=== PATIENT | female | born 1990 | race Caucasian/White ===

== ENCOUNTER → 2017-11-17 | Outpatient (CLI) | payer OTHER ==
[2017-11-17 17:48] LABS: BASO % 0.6 %; BASO ABS # 0.03 K/uL (0-0.2); EOS % 6.1 %; EOS ABS # 0.31 K/uL (0-0.5); HEMATOCRIT 38.9 % (37-47); HEMOGLOBIN 12.6 g/dL (12.0-16.0); IG# 0.01 K/uL (0.00-0.02); LYMPH % 35.8 %; LYMPH ABS # 1.82 K/uL (1.2-3.4); MEAN CELL VOLUME 85.1 fL (80-100); MEAN CORPUSCULAR HEMOGLOBIN 27.6 pg (25-34); MEAN CORPUSCULAR HGB CONC 32.4 g/dl (32-36); MEAN PLATELET VOLUME 9.7 fL (7.4-10.4); MONO % 7.1 %; MONO ABS # 0.36 K/uL (0.11-0.59); NEUT % 50.2 %; NEUT ABS # 2.56 K/uL (1.4-6.5); PLATELET COUNT 278 K/uL (130-400); RED CELL DISTRIBUTION WIDTH CV 19.2 % (11.5-14.5); RED CELL DISTRIBUTION WIDTH SD 59.3 fL (36.4-46.3); WHITE BLOOD COUNT 5.09 K/uL (4.8-10.8)
== END | disposition home or self-care (01) ==
LOC: C.LABMFLN 13:03
PROVIDERS: ATTEND Family Medicine
DX: Z90.49 Acquired absence of other specified parts of digestive tract (principal)

== ENCOUNTER 2024-10-01 16:25 | Observation (INO) ==
[2024-10-01 17:34] LABS: Hematocrit (blood only) 46.2 % (37.0-47.0); Hemoglobin 15.5 g/dl (12.0-16.0); Mean Corpuscular Hemoglobin 31.3 pg (25.0-34.0); Mean Corpuscular Hgb Conc 33.5 g/dL (32.0-36.0); Mean Corpuscular Volume 93.1 fL (80.0-100.0); Mean Platelet Volume 9.4 fL (9.4-12.4); Platelet Count 286 K/uL (130-400); RDW Coefficient of Variation 13.9 % (11.5-14.5); RDW Standard Deviation 47.3 fL (36.4-46.3); Red Blood Count 4.96 M/uL (4.20-5.40); White Blood Count 8.54 K/ul (4.8-10.8)
[2024-10-01] MEDS: ONDANSETRON INJ 2 MG/ML 2 ML VIAL IV STA (17:37)
[2024-10-01] MEDS: SODIUM CHLORIDE 0.9% 1,000 ML IV ONE ×2 (17:37→19:46)
[2024-10-01 17:54] LABS: Alanine Aminotransferase 21 U/L (7-52); Albumin Globulin Ratio 1.2 (0.9-2); Albumin Level 4.7 gm/dl (3.4-5.0); Alkaline Phosphatase 53 U/L (34-104); Anion Gap 10 (3-11); Aspartate Aminotransferase 23 U/L (13-39); BUN Creatinine Ratio 27.4 (10-20); Bilirubin,Total 0.5 mg/dl (0.2-1.0); Blood Urea Nitrogen 17 mg/dl (6-23); Calcium 9.1 mg/dl (8.6-10.3); Carbon Dioxide 19 mmol/L (21-32); Chloride 107 mmol/L (98-107); Globulin 3.8 gm/dl (2.5-4.0); Glucose 146 mg/dl (70-99(Fasting)); Lipase 12 U/L (11-82); Potassium 3.5 mmol/L (3.5-5.1); Sodium 136 mmol/L (136-145); Total Protein 8.5 gm/dl (6.0-8.3)
--- NOTE | 2024-10-01 17:55 | Emergency Department Note ---
Impression & Plan Nausea, vomiting, and diarrhea, Sinus tachycardia, Abdominal pain ED Provider Note HISTORY OF PRESENT ILLNESS: Patient is a 34-year-old female presenting with abdominal pain, vomiting and diarrhea. Patient reports that symptoms started at 2:30 AM and awoke her from sleep. She complains of lower abdominal pain that radiates diffusely across her abdomen. Reports multiple abdominal surgeries, including small bowel resection for " gut." She states that she has had nausea and multiple episodes of vomiting and diarrhea. Reports that diarrhea is watery in nature. Denies any notable fevers at home. Reports that her heart rate is very high and she has had to take off her Apple Watch secondary to it alerting her of her tachycardia. 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 She denies any dysuria or hematuria. Denies any recent antibiotic use. Denies any chest pain or shortness of breath. ROS: as above PHYSICAL EXAM: Constitutional: Patient appears in no acute distress. HENT: Head: Normocephalic and atraumatic. Eyes: EOMI, PERRL Mouth/Throat: Mucous membranes moist. Neck: Trachea midline. Neck supple. Cardiovascular: Tachycardic with regular rhythm. No murmurs, rubs or gallops. Intact distal pulses. Pulmonary/Chest: No respiratory distress. Breath sounds clear and equal bilaterally. No wheezes or rales. Abdominal: Abdomen soft, no rebound or guarding. Diffuse TTP Musculoskeletal: No edema, tenderness or deformity noted. Skin: Warm and dry. No rash, erythema, pallor or cyanosis Psychiatric: Appropriate mood and affect for situation. Neurological: Alert and keenly responsive. CN II-XII grossly intact, moving all extremities equally and fully. MDM: - Vitals signs showed tachycardia - History obtained via patient. History as above. - Chronic conditions affecting care: palpitations - Differential diagnoses include, but are not limited to: bowel obstruction; cholecystitis; electrolyte abnormality; viral syndrome; dehydration; diverticulitis; colitis - Order placed for continuous cardiac monitoring. At this time, monitor showed rate of 111 bpm with normal sinus rhythm, per my interpretation. - External medical records reviewed. Showed C. difficile - Laboratory workup interpreted by myself showed normal WBC; stable electrolytes; hyperglycemia (glucose 146) with normal anion gap; normal lipase; negative hCG - Viral respiratory panel negative - CT abdomen/pelvis with IV contrast showed a hiatal hernia and possible colonic ileus, but otherwise no acute abnormality. Gallbladder is read as unremarkable. No appendix is visualized that is appears to have been removed per radiology. - Patient given 1L NS, 4 mg IV zofran and 4 mg IV morphine in ER for symptomatic management. On reassessment, she still complaining of nausea and pain. She is given 1 L normal saline, 50 mg IV Benadryl and 10 mg IV Compazine. - UA showed bacteria. Given 2g IV rocephin. Patient is not having any urinary symptoms, so do not feel that she needs to be discharged on any antibiotic until cultures result. - Patient noted to be persistently tachycardic while in the emergency department. I thought it was initially secondary to her IV Benadryl dosing for her vomiting. She was given 1 mg IV Ativan with little improvement in her heart rate. She has been persistently 122 to 124 bpm. I did obtain an EKG at 2223. EKG image interpreted by myself showed normal sinus rhythm. Rate tachycardic 123 bpm. QT 448. No acute ischemic changes. - Given her persistent tachycardia, will admit to hospital service for observation and further management. - Discussion was had with gastroenterology manager about patient's case and need for admission - Hospitalist consulted for admission - [facility] ASSESSMENT AND PLAN: Diagnosis: Nausea, vomiting and diarrhea; abdominal pain; sinus tachycardia Plan: Admit Past Med/Surg History Problem List (Updated 10/01/24 @ 23:09 by Melvina Riley MD) Abdominal pain (Acute) Sinus tachycardia (Acute) Nausea, vomiting, and diarrhea (Acute) Short of breath on exertion Left ankle pain Chest pain Cough COVID-19 Sinusitis Weak Viral syndrome Medical History Anemia C. difficile diarrhea Chest pain Diarrhea Hearing loss Insomnia Memory loss Palpitations Palpitations Sinus tachycardia Tinnitus Surgical History S/P right hemicolectomy Family History Other No pertinent family history Social History Smoking Status: Never smoker Second Hand Exposure: No; Hx Alcohol Use: No Hx Substance Use: No marital status: Single Current Living Situation: Family and Significant Other Current Living Situation Comment: son- 9 daughter-2 current occupational status: employed current occupation: [employer] Fe[employer] Safe at Home: Yes Childhood Exposure to Second-Hand Smoke: Yes caffeine: Yes Dental Care, Regularly: No Physical Activity Frequency: Does not Exercise Seatbelt Use: never Allergies Allergies Allergy/AdvReac Type Severity Reaction Status Date / Time erythromycin base AdvReac Verified 09/23/23 11:58 morphine AdvReac Verified 09/23/23 11:58 Sulfa (Sulfonamide AdvReac Verified 09/23/23 11:58 Antibiotics) Home Meds Previous Rx's Medication Instructions Recorded albuterol sulfate 90 mcg/actuation 2 puff inhalation QID #8 grams 09/17/23 aerosol inhaler (ProAir HFA) diphenoxylate-atropine 2.5 1 tab PO TID PRN diarrhea #14 tabs 09/23/23 mg-0.025 mg tablet (Lomotil) ibuprofen 600 mg tablet 600 mg PO TID PRN pain #30 tabs 09/23/23 ondansetron HCl 4 mg tablet 4 mg PO Q6H PRN nausea and 09/23/23 vomiting #14 tabs hydroxyzine HCl 25 mg tablet 25 mg PO HS PRN itching #30 tabs 04/29/24 Results & Data (ED) Vital Signs Vital Signs - 24 hr 10/01/24 16:38 10/01/24 18:15 10/01/24 18:33 Temperature 36 C L Temperature Source Temporal Artery Scan Pulse Rate 127 H 122 H Pulse Rate [Apical] Pulse Rate from SpO2 Sensor 114 H Respiratory Rate 20 Respiratory Depth Normal Blood Pressure 121/84 Blood Pressure [Right Arm] Blood Pressure Mean 96 Blood Pressure Mean [Right Arm] Pulse Oximetry 99 99 Oxygen Delivery Method Room Air Sepsis Recent Fever Within 48 Hours No Sepsis New/Unexplained Change in Mental Status No Sepsis Action Taken by Nursing No Action Required 10/01/24 18:53 10/01/24 19:30 10/01/24 20:03 Temperature Temperature Source Pulse Rate 113 H 126 H Pulse Rate [Apical] 110 H Pulse Rate from SpO2 Sensor Respiratory Rate 20 24 29 H Respiratory Depth Blood Pressure 125/87 137/103 H Blood Pressure [Right Arm] 111/72 Blood Pressure Mean 99 114 Blood Pressure Mean [Right Arm] 85 Pulse Oximetry 98 96 97 Oxygen Delivery Method Room Air Sepsis Recent Fever Within 48 Hours Sepsis New/Unexplained Change in Mental Status Sepsis Action Taken by Nursing 10/01/24 20:45 10/01/24 21:03 10/01/24 21:27 Temperature Temperature Source Pulse Rate 127 H 127 H 131 H Pulse Rate [Apical] Pulse Rate from SpO2 Sensor Respiratory Rate 20 20 22 Respiratory Depth Blood Pressure 131/91 132/89 117/76 Blood Pressure [Right Arm] Blood Pressure Mean 104 103 89 Blood Pressure Mean [Right Arm] Pulse Oximetry 98 97 95 Oxygen Delivery Method Sepsis Recent Fever Within 48 Hours Sepsis New/Unexplained Change in Mental Status Sepsis Action Taken by Nursing 10/01/24 22:15 Temperature Temperature Source Pulse Rate 124 H Pulse Rate [Apical] Pulse Rate from SpO2 Sensor Respiratory Rate Respiratory Depth Blood Pressure Blood Pressure [Right Arm] Blood Pressure Mean Blood Pressure Mean [Right Arm] Pulse Oximetry Oxygen Delivery Method Sepsis Recent Fever Within 48 Hours Sepsis New/Unexplained Change in Mental Status Sepsis Action Taken by Nursing Laboratory Data 10/01/24 16:32 10/01/24 16:32 Lab Results 10/01/24 10/01/24 10/01/24 Range/Units 16:32 18:12 19:22 WBC 8.54 (4.8-10.8) K/ul RBC 4.96 (4.20-5.40) M/uL Hgb 15.5 (12.0-16.0) g/dl Hct 46.2 (37.0-47.0) % MCV 93.1 (80.0-100.0) fL MCH 31.3 (25.0-34.0) pg MCHC 33.5 (32.0-36.0) g/dL RDW Std Deviation 47.3 H (36.4-46.3) fL RDW Coeff of Breana 13.9 (11.5-14.5) % Plt Count 286 (130-400) K/uL MPV 9.4 (9.4-12.4) fL Immature Gran % (Auto) 0.4 % Neut % (Auto) 94.2 % Lymph % (Auto) 3.0 % [place] % (Auto) 2.3 % Eos % (Auto) 0.0 % Baso % (Auto) 0.1 % Neut # (Auto) 8.04 H (1.40-6.50) K/uL Lymph # (Auto) 0.26 L (1.20-3.40) K/uL [place] # (Auto) 0.20 (0.11-0.59) K/uL Eos # (Auto) 0.00 (0.00-0.50) K/uL Baso # (Auto) 0.01 (0.00-0.20) K/uL Immature Gran # (Auto) 0.03 (0.01-0.20) K/uL Sodium 136 (136-145) mmol/L Potassium 3.5 (3.5-5.1) mmol/L Chloride 107 (98-107) mmol/L Carbon Dioxide 19 L (21-32) mmol/L Anion Gap 10 (3-11) BUN 17 (6-23) mg/dl Creatinine 0.62 (0.6-1.2) mg/dl Est Cr Clr Drug Dosing Not Reportable eGFR 119.77 BUN/Creatinine Ratio 27.4 H (10-20) Glucose 146 H (70-99(Fasting)) mg/dl Calcium 9.1 (8.6-10.3) mg/dl Total Bilirubin 0.5 (0.2-1.0) mg/dl AST 23 (13-39) U/L ALT 21 (7-52) U/L Alkaline Phosphatase 53 (34-104) U/L Total Protein 8.5 H (6.0-8.3) gm/dl Albumin 4.7 (3.4-5.0) gm/dl Globulin 3.8 (2.5-4.0) gm/dl Albumin/Globulin Ratio 1.2 (0.9-2) Lipase 12 (11-82) U/L HCG, Qual Negative (Negative) Urine Color Yellow Urine Appearance Clear (Clear) Urine pH 5.5 (4.5-7.5) Ur Specific [place] > 1.045 H (1.000-1.030) Urine Protein 1+ H (Negative) Urine Glucose (UA) Trace H (Negative) Urine Ketones Negative (Negative) Urine Blood Negative (Negative) Urine Nitrite Negative (Negative) Urine Bilirubin Negative (Negative) Urine Urobilinogen Negative (Negative) Ur Leukocyte Esterase Negative (Negative) Urine WBC (Auto) 6-10 H (0-5) /hpf Urine RBC (Auto) 0-2 (0-2) /hpf U Hyaline Cast (Auto) 0-2 (0-2) /lpf U Epithel Cells (Auto) 11-20 H (0-2) /hpf Urine Bacteria (Auto) 3+ H (None Seen) Adenovirus (PCR) Not Detected (NotDetected) B. pertussis DNA (PCR) Not Detected (NotDetected) B.parapertussis DNA PCR Not Detected (NotDetected) C. pneumoniae DNA (PCR) Not Detected (NotDetected) Coronavirus OC43 (PCR) Not Detected (NotDetected) Coronavirus HKU1 (PCR) Not Detected (NotDetected) Coronavirus 229E (PCR) Not Detected (NotDetected) SARS-CoV-2 (PCR) Not Detected (NotDetected) Coronavirus NL63 (PCR) Not Detected (NotDetected) Human Metapneumovir PCR Not Detected (NotDetected) Influenza Type A (PCR) Not Detected (NotDetected) Influenza Type B (PCR) Not Detected (NotDetected) M. pneumoniae (PCR) Not Detected (NotDetected) Parainfluenza 1 (PCR) Not Detected (NotDetected) Parainfluenza 2 (PCR) Not Detected (NotDetected) Parainfluenza 3 (PCR) Not Detected (NotDetected) Parainfluenza 4 (PCR) Not Detected (NotDetected) RSV (PCR) Not Detected (NotDetected) Entero/Rhino (PCR) Not Detected (NotDetected) Administered Medications Discontinued Medications Diphenhydramine HCl (Diphenhydramine 50 Mg/Ml Vial) 50 mg IV NOW STA Stop: 10/01/24 19:08 Last Admin: 10/01/24 19:12 Dose: 50 mg Documented By: TONY Sodium Chloride (Nss) 1,000 mls @ 999 mls/hr IV .Q1H1M ONE Stop: 10/01/24 18:36 Last Infusion: 10/01/24 18:59 Dose: Infused Documented By: Admin: 10/01/24 17:37 Dose: 999 mls/hr Documented By: TREVON Sodium Chloride (Nss) 1,000 mls @ 999 mls/hr IV .Q1H1M ONE Stop: 10/01/24 19:42 Last Infusion: 10/01/24 20:56 Dose: Infused Documented By: Admin: 10/01/24 19:46 Dose: 999 mls/hr Documented By: TREVON Prochlorperazine (Compazine) 2 mls @ 1 mls/min IV ONE ONE Stop: 10/01/24 19:08 Last Admin: 10/01/24 19:12 Dose: 1 mls/min Documented By: TONY Ceftriaxone Sodium (Rocephin) 2,000 mg in 50 mls @ 100 mls/hr IV NOW STA Stop: 10/01/24 20:32 Last Infusion: 10/01/24 21:47 Dose: Infused Documented By: Admin: 10/01/24 21:00 Dose: 100 mls/hr Documented By: TONY Ioversol (Optiray 320 100ml) 90 ml IV ONCE ONE Stop: 10/01/24 18:26 Last Admin: 10/01/24 18:25 Dose: 90 ml Documented By: JUANJOSE Lorazepam (Lorazepam 2 Mg/1 Ml Vial) 1 mg IV NOW STA Stop: 10/01/24 21:41 Last Admin: 10/01/24 21:55 Dose: 1 mg Documented By: TONY Morphine Sulfate (Morphine Sulfate 4 Mg/Ml 1 Ml Carp\\Vial) 4 mg IV NOW STA Stop: 10/01/24 17:53 Last Admin: 10/01/24 18:10 Dose: 4 mg Documented By: TREVON Ondansetron HCl (Ondansetron Inj 2 Mg/Ml 2 Ml Vial) 4 mg IV NOW STA Stop: 10/01/24 16:44 Last Admin: 10/01/24 17:37 Dose: 4 mg Documented By: TREVON Imaging Data Radiologist's Impression: Abdomen/Pelvis CT 10/01/24 17:52 Clinical History: Abdominal pain Technique: Axial computed tomography images were obtained of the abdomen and pelvis after the administration of intravenous contrast. No prior CT is available for comparison. Findings: The liver is overall of normal size, attenuation, and contour with no sign of cirrhosis or significant fatty infiltration. No liver mass lesion is seen. The portal vein is patent. The gallbladder appears unremarkable. No bile duct dilatation is noted. The spleen is of normal size. No focal splenic lesion is evident. The pancreas appears normal with no sign of acute or chronic pancreatitis and no mass lesion noted. The pancreatic duct is of normal caliber. The adrenal glands appear unremarkable. No definite renal or proximal ureteral calculi are seen on this contrast-enhanced study. There is no hydronephrosis or perinephric stranding. No renal mass lesion is identified. The aorta is of normal caliber. No abdominal adenopathy is seen. There is a moderate sized hiatal hernia. Postsurgical changes are seen involving the stomach. There is no sign of small bowel obstruction. There is mild colonic dilatation that could be due to ileus. The appendix appears to have been removed. No free intraperitoneal fluid or air is identified. No distal ureteral or bladder calculi are seen. No bladder mass lesion is evident. The iliac arteries are of normal caliber. No pelvic adenopathy is noted. The lungs bases appear clear. There is pectus excavatum deformity of the anterior chest wall. There are bilateral breast implants. No fracture is identified. No focal osseous lesion is seen Impression: 1. Hiatal hernia 2. Possible colonic ileus Electronically signed by Andrei Aguirre 10-01-2024 6:45 PM Discharge Plan Visit Data Chief Complaint: Illness Stated Complaint: NAUSEA AND VOMITING, ABD PAIN, DIARRHEA ED Provider: Melvina Riley Discharge Problem: Nausea, vomiting, and diarrhea, Sinus tachycardia, Abdominal pain Forms Stand Alone Forms: [facility] [place] [employer] Prescriptions Prescriptions: No Action hydroxyzine HCl 25 mg tablet 25 mg PO HS PRN (Reason: itching) Qty: 30 0RF albuterol sulfate [ProAir HFA] 90 mcg/actuation HFA aerosol inhaler 2 puff INH QID Qty: 8 2RF ondansetron HCl 4 mg tablet 4 mg PO Q6H PRN (Reason: nausea and vomiting) Qty: 14 0RF diphenoxylate-atropine [Lomotil] 2.5-0.025 mg tablet 1 tab PO TID PRN (Reason: diarrhea) Qty: 14 0RF ibuprofen 600 mg tablet 600 mg PO TID PRN (Reason: pain) Qty: 30 0RF Referrals Referrals: Eloy Hubbard DO [Primary Care Provider] -
[2024-10-01 17:57] LABS: Pregnancy Test, Serum Negative (Negative)
[2024-10-01 17:59] LABS: Basophils # (auto) 0.01 K/uL (0.00-0.20); Basophils % (auto) 0.1 %; Immature Granulocytes # (auto) 0.03 K/uL (0.01-0.20); Immature Granulocytes % (auto) 0.4 %; Lymphocytes # (auto) 0.26 K/uL (1.20-3.40); Monocytes % (auto) 2.3 %; Neutrophils # (auto) 8.04 K/uL (1.40-6.50); Neutrophils % (auto) 94.2 %
[2024-10-01] MEDS: MoRPHine SULFATE 4 MG/ML 1 ML CARP\\VIAL IV STA (18:10)
[2024-10-01] MEDS: OPTIRAY 320 100ml IV ONE (18:25)
--- NOTE | 2024-10-01 18:55 | CT Scan Report ---
Clinical History: Abdominal pain Technique: Axial computed tomography images were obtained of the abdomen and pelvis after the administration of intravenous contrast. No prior CT is available for comparison. Findings: The liver is overall of normal size, attenuation, and contour with no sign of cirrhosis or significant fatty infiltration. No liver mass lesion is seen. The portal vein is patent. The gallbladder appears unremarkable. No bile duct dilatation is noted. The spleen is of normal size. No focal splenic lesion is evident. The pancreas appears normal with no sign of acute or chronic pancreatitis and no mass lesion noted. The pancreatic duct is of normal caliber. The adrenal glands appear unremarkable. No definite renal or proximal ureteral calculi are seen on this contrast-enhanced study. There is no hydronephrosis or perinephric stranding. No renal mass lesion is identified. The aorta is of normal caliber. No abdominal adenopathy is seen. There is a moderate sized hiatal hernia. Postsurgical changes are seen involving the stomach. There is no sign of small bowel obstruction. There is mild colonic dilatation that could be due to ileus. The appendix appears to have been removed. No free intraperitoneal fluid or air is identified. No distal ureteral or bladder calculi are seen. No bladder mass lesion is evident. The iliac arteries are of normal caliber. No pelvic adenopathy is noted. The lungs bases appear clear. There is pectus excavatum deformity of the anterior chest wall. There are bilateral breast implants. No fracture is identified. No focal osseous lesion is seen Impression: 1. Hiatal hernia 2. Possible colonic ileus Electronically signed by Andrei Aguirre 10-01-2024 6:45 PM
[2024-10-01] MEDS: PROCHLORPERAZINE 2 ML IV ONE (19:12)
[2024-10-01] MEDS: diphenhydrAMINE 50 MG/ML VIAL IV STA (19:12)
[2024-10-01 19:34] LABS: Adenovirus PCR Not Detected (NotDetected); Bordetella parapertussis PCR Not Detected (NotDetected); Bordetella pertussis PCR Not Detected (NotDetected); Chlamydia pneumoniae PCR Not Detected (NotDetected); Coronavirus 229E PCR Not Detected (NotDetected); Coronavirus CoV-2 (COVID19)PCR Not Detected (NotDetected); Coronavirus HKU1 PCR Not Detected (NotDetected); Coronavirus NL63 PCR Not Detected (NotDetected); Coronavirus OC43PCR Not Detected (NotDetected); Human Metapneumovirus PCR Not Detected (NotDetected); Influenza A PCR Not Detected (NotDetected); Influenza B PCR Not Detected (NotDetected); Mycoplasma pneumoniae PCR Not Detected (NotDetected); Parainfluenza Virus 1 PCR Not Detected (NotDetected); Parainfluenza Virus 2 PCR Not Detected (NotDetected); Parainfluenza Virus 3 PCR Not Detected (NotDetected); Parainfluenza Virus 4 PCR Not Detected (NotDetected); Respiratory Syncytial VirusPCR Not Detected (NotDetected); Rhinovirus/Enterovirus PCR Not Detected (NotDetected)
[2024-10-01 20:00] LABS: Appearance Urine Clear (Clear); Bacteria Urine Automated 3+ (None Seen); Bilirubin Urine Negative (Negative); Blood Urine Negative (Negative); Cast Urine Automated 0-2 /lpf (0-2); Color Urine Yellow; Glucose Urine UA Trace (Negative); Ketones Urine Negative (Negative); Leukocyte Esterase Urine Negative (Negative); Nitrite Urine Negative (Negative); Protein Urine 1+ (Negative); RBC Urine Automated 0-2 /hpf (0-2); Specific Gravity Urine > 1.045 (1.000-1.030); Urobilinogen Urine Negative (Negative); pH Urine 5.5 (4.5-7.5)
[2024-10-01] MEDS: cefTRIAXone SODIUM 2,000 MG/50 ML BAG IV STA (21:00)
[2024-10-01] MEDS: LORazepam 2 MG/1 ML VIAL IV STA (21:55)
--- NOTE | 2024-10-01 23:35 | History & Physical Report ---
Date of Service October 01, 2024 Assessment & Plan (1) Sinus tachycardia: (2) Nausea, vomiting, and diarrhea: Plan 34-year-old female PMHx C. difficile diarrhea and anemia presenting for abdominal pain with associated vomiting and diarrhea x 1 day. ED evaluation reveals no leukocytosis, stable H&H, CO2 19, BUN/creatinine ratio 27.4, protein 8.5; UA elevated SG, presence of WBC many epithelial cells and plus bacteria, was provided with Rocephin x 1 in ED; BioFire negative; CTAP hiatal hernia, possible colonic ileus. Provided with 2L NSS, ondansetron, morphine, lorazepam, diphenhydramine, Rocephin, prochlorperazine. #Sinus tachycardia Pt presents for GI complaints but remained tachycardic throughout exam, w/o chest pain, palpitations, or additional symptoms. Hypovolemic on exam, did have some SOB reported with dizziness. No prolonged duration of sitting or other clear risk factors for VTE, no calf tenderness bilaterally. Suspect that elevated heart rate secondary to dehydration versus PE versus illicit drug versus normal variant for patient. Does have history of sinus tachycardia and medical chart, but patient and family member state that this is abnormal for her. - CBC without leukocytosis and stable H&H; TSH 1.379; D-dimer was obtained and elevated at 1360- BLE duplex US pending - Chest CTA negative PE- does reveal pectus excavatum - UDS positive for opioids (patient denied illicit drug use, sample collected following administration of morphine in ED); Marijuana negative - EKG AJR @ 123 bpm; continue to monitor on tele #GI symptoms Abdominal pain, vomiting, and diarrhea starting at 0200 the day of arrival and ongoing throughout the day. No sick contacts; resp BioFire negative. H/o Cdiff. - CMP: BUN/creatinine ratio 27.4, and CO2 19 otherwise no gross electrode abnormalities - UDS (+) opiates however UDS collected after patient received dose of morphine in ED- pending further studies - CTAP hiatal hernia, ? colonic ileus - Stool studies pending + cdiff pending - Received 2L IVF; will continue maintenance rate LR @ 80 mL/hr - Zofran prn - Liquid diet to start, advance as patient tolerates Dispo: Admit, med/tele VTE Prophylaxis: Lovenox This document was dictated utilizing Technical Machine. Please excuse any grammatical errors that may be secondary to use of this software. Admission and Anticipated Discharge Date Admission Date: 10/01/2024 History of Present Illness Chief Complaint: Abdominal pain, V/D Primary Care Provider: Eloy Hubbard DO 34-year-old female PMHx C. difficile diarrhea and anemia presenting for abdominal pain with associated vomiting and diarrhea x 1 day. Patient states that she awoke around 0200 with onset of lower abdominal pain that was sharp and aching in nature, then had multiple episodes of emesis. Additionally has been having diarrhea x 5 days BUDDER. No recent ABX use. Patient denies sick contacts, does not believe that she ate anything recently that would have caused the symptoms. 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 States that when she lays back down this resolves some. Denies illicit drug use. Denying chest pain, palpitations, LUTS, numbness/tingling, syncope, headache, or fever/chills. ED evaluation reveals no leukocytosis, stable H&H, CO2 19, BUN/creatinine ratio 27.4, protein 8.5; UA elevated SG, presence of WBC many epithelial cells and plus bacteria, was provided with Rocephin x 1 in ED; BioFire negative; CTAP hiatal hernia, possible colonic ileus. Provided with 2L NSS, ondansetron, morphine, lorazepam, diphenhydramine, Rocephin, prochlorperazine. Please see Dr. Palacios's attestation for adjustments/additions to treatment plan. Allergies Allergy/AdvReac Type Severity Reaction Status Date / Time erythromycin base AdvReac Verified 09/23/23 11:58 morphine AdvReac Verified 09/23/23 11:58 Sulfa (Sulfonamide AdvReac Verified 09/23/23 11:58 Antibiotics) Home Medications Medication Instructions Recorded Confirmed Type albuterol sulfate 90 mcg/actuation 2 puff inhalation QID #8 grams 09/17/23 10/02/24 Rx aerosol inhaler (ProAir HFA) ondansetron HCl 4 mg tablet 4 mg PO Q6H PRN nausea and 09/23/23 10/02/24 Rx vomiting #14 tabs Past Med/Surg History Problem List Abdominal pain (Acute) Sinus tachycardia (Acute) Nausea, vomiting, and diarrhea (Acute) Short of breath on exertion Left ankle pain Chest pain Cough COVID-19 Sinusitis Weak Viral syndrome Medical History Diarrhea Memory loss Tinnitus Hearing loss Insomnia Sinus tachycardia Palpitations Palpitations Chest pain Anemia C. difficile diarrhea Surgical History S/P right hemicolectomy Family History Other No pertinent family history Social History Smoking Status: Never smoker Second Hand Exposure: No; Hx Alcohol Use: No Hx Substance Use: No Preferred Language: Niuean Communication Ability: Effective Ripening Room Hand Required: No Beliefs That Will Affect Care: None marital status: Single Current Living Situation: Family and Significant Other Current Living Situation Comment: son- 9 daughter-2 current occupational status: employed current occupation: [employer] Feels Safe at Home: Yes Childhood Exposure to Second-Hand Smoke: Yes caffeine: Yes Dental Care, Regularly: No Physical Activity Frequency: Does not Exercise Seatbelt Use: never Assistive Devices: Contacts and Glasses Review of Systems Review of Systems: All systems reviewed & are unremarkable except as noted in Subjective Physical Exam Physical Exam: General: No acute distress Skin: Warm and dry Head: Normocephalic, atraumatic Eyes: PERRL, conjunctivae clear, sclera non-icteric ENT: External ear and ear canal without swelling; nose atraumatic; No teeth present, tongue normal appearance, pharynx normal Neck: Supple, no LAD Cardio: Tachycardic 110s-120s, regular rhythm, no M/G/R, S1 and S2 normal Resp: No respiratory distress, Lungs CTA in all lobes bilaterally, no wheezes, rales, or rhonchi Abdomen: Soft, symmetric, nontender; no distention; No masses or hepatosplenomegaly; Bowel sounds normoactive MSK: No deformities; pulses palpable and equal; no edema; No calf tenderness bilaterally. Neuro: Awake, alert; CN grossly intact Psych: Good judgement and insight. Male family member present in room at time of visit. Results & Data Results & Data Vital Signs (Past 12 Hours) Vital Signs Temp Pulse Pulse Resp BP BP Pulse Ox 10/01/24 22:15 124 H 10/01/24 21:27 131 H 22 117/76 95 10/01/24 21:03 127 H 20 132/89 97 10/01/24 20:45 127 H 20 131/91 98 10/01/24 20:03 126 H 29 H 137/103 H 97 10/01/24 19:30 113 H 24 125/87 96 10/01/24 18:53 110 H 20 111/72 98 10/01/24 18:33 99 10/01/24 18:15 122 H 10/01/24 16:38 36 C L 127 H 20 121/84 99 O2 Del Method 10/01/24 22:15 10/01/24 21:27 10/01/24 21:03 10/01/24 20:45 10/01/24 20:03 10/01/24 19:30 10/01/24 18:53 Room Air 10/01/24 18:33 10/01/24 18:15 10/01/24 16:38 Room Air Laboratory Results 10/01/24 19:22 Urine Culture - Pending Urine,Clean Catch 10/01/24 10/01/24 10/01/24 23:58 19:22 18:12 WBC RBC Hgb Hct MCV MCH MCHC RDW Std Deviation RDW Coeff of Breana Plt Count MPV Immature Gran % (Auto) Neut % (Auto) Lymph % (Auto) Cole % (Auto) Eos % (Auto) Baso % (Auto) Neut # (Auto) Lymph # (Auto) Cole # (Auto) Eos # (Auto) Baso # (Auto) Immature Gran # (Auto) D-Dimer 1360 H* Sodium Potassium Chloride Carbon Dioxide Anion Gap BUN Creatinine Est Cr Clr Drug Dosing eGFR BUN/Creatinine Ratio Glucose Calcium Total Bilirubin AST ALT Alkaline Phosphatase Total Protein Albumin Globulin Albumin/Globulin Ratio Lipase TSH HCG, Qual Urine Color Yellow Urine Appearance Clear Urine pH 5.5 Ur Specific [place] > 1.045 H Urine Protein 1+ H Urine Glucose (UA) Trace H Urine Ketones Negative Urine Blood Negative Urine Nitrite Negative Urine Bilirubin Negative Urine Urobilinogen Negative Ur Leukocyte Esterase Negative Urine WBC (Auto) 6-10 H Urine RBC (Auto) 0-2 U Hyaline Cast (Auto) 0-2 U Epithel Cells (Auto) 11-20 H Urine Bacteria (Auto) 3+ H Urine Opiates Screen Pos H Ur Methadone, Qual Neg Urine Fentanyl Screen Neg Urine Barbiturates Neg Ur Phencyclidine (PCP) Neg U Amphetamin/Meth Scrn Neg MDMA (Ecstasy) Screen Neg U Benzodiazepines Scrn Neg Ur Cocaine Metabolite Neg U Marijuana (THC) Screen Neg Adenovirus (PCR) Not Detected B. pertussis DNA (PCR) Not Detected B.parapertussis DNA PCR Not Detected C. pneumoniae DNA (PCR) Not Detected Coronavirus OC43 (PCR) Not Detected Coronavirus HKU1 (PCR) Not Detected Coronavirus 229E (PCR) Not Detected SARS-CoV-2 (PCR) Not Detected Coronavirus NL63 (PCR) Not Detected Human Metapneumovir PCR Not Detected Influenza Type A (PCR) Not Detected Influenza Type B (PCR) Not Detected M. pneumoniae (PCR) Not Detected Parainfluenza 1 (PCR) Not Detected Parainfluenza 2 (PCR) Not Detected Parainfluenza 3 (PCR) Not Detected Parainfluenza 4 (PCR) Not Detected RSV (PCR) Not Detected Entero/Rhino (PCR) Not Detected 10/01/24 16:32 WBC 8.54 RBC 4.96 Hgb 15.5 Hct 46.2 MCV 93.1 MCH 31.3 MCHC 33.5 RDW Std Deviation 47.3 H RDW Coeff of Breana 13.9 Plt Count 286 MPV 9.4 Immature Gran % (Auto) 0.4 Neut % (Auto) 94.2 Lymph % (Auto) 3.0 Cole % (Auto) 2.3 Eos % (Auto) 0.0 Baso % (Auto) 0.1 Neut # (Auto) 8.04 H Lymph # (Auto) 0.26 L Cole # (Auto) 0.20 Eos # (Auto) 0.00 Baso # (Auto) 0.01 Immature Gran # (Auto) 0.03 D-Dimer Sodium 136 Potassium 3.5 Chloride 107 Carbon Dioxide 19 L Anion Gap 10 BUN 17 Creatinine 0.62 Est Cr Clr Drug Dosing Not Reportable eGFR 119.77 BUN/Creatinine Ratio 27.4 H Glucose 146 H Calcium 9.1 Total Bilirubin 0.5 AST 23 ALT 21 Alkaline Phosphatase 53 Total Protein 8.5 H Albumin 4.7 Globulin 3.8 Albumin/Globulin Ratio 1.2 Lipase 12 TSH 1.379 HCG, Qual Negative Urine Color Urine Appearance Urine pH Ur Specific [place] Urine Protein Urine Glucose (UA) Urine Ketones Urine Blood Urine Nitrite Urine Bilirubin Urine Urobilinogen Ur Leukocyte Esterase Urine WBC (Auto) Urine RBC (Auto) U Hyaline Cast (Auto) U Epithel Cells (Auto) Urine Bacteria (Auto) Urine Opiates Screen Ur Methadone, Qual Urine Fentanyl Screen Urine Barbiturates Ur Phencyclidine (PCP) U Amphetamin/Meth Scrn MDMA (Ecstasy) Screen U Benzodiazepines Scrn Ur Cocaine Metabolite U Marijuana (THC) Screen Adenovirus (PCR) B. pertussis DNA (PCR) B.parapertussis DNA PCR C. pneumoniae DNA (PCR) Coronavirus OC43 (PCR) Coronavirus HKU1 (PCR) Coronavirus 229E (PCR) SARS-CoV-2 (PCR) Coronavirus NL63 (PCR) Human Metapneumovir PCR Influenza Type A (PCR) Influenza Type B (PCR) M. pneumoniae (PCR) Parainfluenza 1 (PCR) Parainfluenza 2 (PCR) Parainfluenza 3 (PCR) Parainfluenza 4 (PCR) RSV (PCR) Entero/Rhino (PCR) Diagnostic Findings Abdomen/Pelvis CT 10/01/24 17:52 Clinical History: Abdominal pain Technique: Axial computed tomography images were obtained of the abdomen and pelvis after the administration of intravenous contrast. No prior CT is available for comparison. Findings: The liver is overall of normal size, attenuation, and contour with no sign of cirrhosis or significant fatty infiltration. No liver mass lesion is seen. The portal vein is patent. The gallbladder appears unremarkable. No bile duct dilatation is noted. The spleen is of normal size. No focal splenic lesion is evident. The pancreas appears normal with no sign of acute or chronic pancreatitis and no mass lesion noted. The pancreatic duct is of normal caliber. The adrenal glands appear unremarkable. No definite renal or proximal ureteral calculi are seen on this contrast-enhanced study. There is no hydronephrosis or perinephric stranding. No renal mass lesion is identified. The aorta is of normal caliber. No abdominal adenopathy is seen. There is a moderate sized hiatal hernia. Postsurgical changes are seen involving the stomach. There is no sign of small bowel obstruction. There is mild colonic dilatation that could be due to ileus. The appendix appears to have been removed. No free intraperitoneal fluid or air is identified. No distal ureteral or bladder calculi are seen. No bladder mass lesion is evident. The iliac arteries are of normal caliber. No pelvic adenopathy is noted. The lungs bases appear clear. There is pectus excavatum deformity of the anterior chest wall. There are bilateral breast implants. No fracture is identified. No focal osseous lesion is seen Impression: 1. Hiatal hernia 2. Possible colonic ileus Electronically signed by Andrei Aguirre 10-01-2024 6:45 PM ECG Additional Comments: AJR, LVH 123 bpm, QRS 84, QT/QTc 448/641, PRT */-22/47 Code Status & VTE Plan Code Status Full VTE Prophylaxis Plan VTE Prophylaxis will be ordered: Yes Supervising Physician Co-Signing Physician Notes Attending addendum: I have physically seen this patient, have supervised the ADAMS's activities, and agree with the H&P unless as otherwise noted. Assessment and Plan: The patient is a 34-year-old female past medical history significant for diarrhea, anemia presents with abdominal pain, nausea, vomiting and diarrhea x 1 day. Imaging in the emergency department showed CT scan abdomen pelvis hiatal hernia, possible colonic ileus. From the ED she received 2 L normal saline, Zofran, morphine, aspirin, diphenhydramine, ceftriaxone, and prochlorperazine. She was then referred for evaluation for admission to [facility]. #Colonic ileus- Patient's presenting symptoms of abdominal pain, vomiting. Improved after fluid rehydration, but had persistent sinus tachycardia Urine drug screen positive for opiates, but had already received morphine from the ED Urine drug screen otherwise negative S/P 2 liter NSS bolus from the ED Continue IVF's with LR at 80 mL/h x 1 additional liter Zofran 4 mg IV every 6 hours as needed Begin diet with full liquids, advance as tolerated Sinus tachycardia- Secondary to volume depletion due to GI fluid losses History of sinus tachycardia D-dimer elevated at 1364 prompting workup Admit to med telemetry continue IV fluid rehydration as noted CTA chest PE protocol negative for PE Venous Doppler study pending PG Care Time/CCT Total # of Minutes Spent Total Time Spent with Patient: Total time spent is greater than 50% in coordination of care (as documented) at patient's floor/unit and/or counseling patient: Coding Level of Care Code 71606 INT INP/OBS CARE 3/75MIN Diagnoses Sinus tachycardia R00.0 Nausea, vomiting, and diarrhea R11.2; R19.7
[2024-10-01 23:59] LABS: Thyroid Stimulating Hormone 1.379 uIu/ml (0.300-4.500)
[2024-10-02 00:01] LABS: Amphetamines+Metham, Urine Neg (Neg); Barbiturates, Urine Neg (Neg); Benzodiazepine, Urine Neg (Neg); Cocaine, Urine Neg (Neg); Fentanyl, Urine Neg (Neg); MDMA (Ecstacy), Urine Neg (Neg); Marijuana, Urine Neg (Neg); Methadone, Urine Neg (Neg); Opiate, Urine Pos (Neg); Phencyclidine, Urine Neg (Neg)
[2024-10-02] MEDS ORDERED: ONDANSETRON INJ 2 MG/ML 2 ML VIAL IV PRN (00:15)
[2024-10-02] MEDS ORDERED: MELATONIN 3 MG TAB PO PRN (00:15)
[2024-10-02] MEDS ORDERED: POLYETHYLENE (MIRALAX) 17 GM PACK PO PRN (00:15)
[2024-10-02 00:40] LABS: D Dimer 1360 ug/L FEU (0-500)
[2024-10-02] MEDS: OPTIRAY 320 125ml IV ONE (01:03)
[2024-10-02] MEDS: ENOXAPARIN INJ 40 MG/0.4 ML SYR SQ SCH (01:15)
[2024-10-02] MEDS: LACTATED RINGER'S 1,000 ML IV SCH (01:36)
--- NOTE | 2024-10-02 02:00 | CT Scan Report ---
EXAM: CT angio chest PE protocol CLINICAL HISTORY: PE TECHNIQUE: Contiguous axial images were obtained from the neck base through the upper abdomen following intravenous administration of iodinated contrast material. Angiographic images were processed, 3D MIP images were acquired for interpretation. If IV contrast material had not been administered, the likelihood of detecting abnormalities relevant to the patient's condition would have been substantially decreased. Coronal and sagittal 3-D MIPs were likewise performed and indicated to increase the sensitivity of detectin diffuse clinically relevant pathology. CT scan was performed according to ALARA (as low as reasonably achievable). COMPARISON: none FINDINGS: Adequate contrast bolus without evidence of pulmonary embolism. The central airways are patent. The lungs are clear. No pleural effusion. The heart, aorta, and pulmonary arteries are of normal size and configuration. There are no appreciable coronary artery and aortic atherosclerotic calcifications. No pericardial effusion is identified. The thyroid is unremarkable. No mediastinal, hilar, or axillary lymphadenopathy is noted. No suspicious lytic or sclerotic osseous lesions are identified. Pectus excavatum noted. Bilateral breast implants seen. Moderate sized hiatus hernia. IMPRESSION: 1. No evidence of pulmonary embolism or pulmonary disease. 2. Pectus excavatum noted. Electronically signed by Donovan Calvert 10-02-2024 02:00 AM
[2024-10-02] MEDS: ACETAMINOPHEN 325 MG TAB PO PRN (05:15)
[2024-10-02] MEDS: ALBUTEROL HFA 8 GM INHALER INH SCH (07:23)
[2024-10-02] MEDS: IBUPROFEN 200 MG TAB PO PRN (07:44)
[2024-10-02] MEDS ORDERED: ALBUTEROL HFA 8 GM INHALER INH SCH ×2 (09:00→11:00)
--- NOTE | 2024-10-02 10:01 | Ultrasound Report ---
EXAM: US venous doppler LE BI CLINICAL HISTORY: Elevated ddimer, SOB, ST TECHNIQUE: Ultrasound examination of bilateral lower extremity veins was performed in real time and duplex. One or more of the following were performed- spectral analysis, resistive index, waveform analysis, and pulsed Doppler. COMPARISON: None. FINDINGS: Normal phasic, non-pulsatile, and spontaneous flow is noted in bilateral common femoral, superficial femoral, popliteal, and posterior tibial and peroneal veins. Visualized veins of both lower extremities demonstrate normal compressibility. No sonographic evidence of acute deep vein thrombosis (DVT) is detected in the visualized veins of both lower extremities. Compression and Augmentation: All evaluated veins compress fully with applied transducer pressure. Augmentation of venous flow is noted with distal compression. Additional Findings: No evidence of intraluminal thrombus. IMPRESSION: No sonographic evidence of acute DVT was detected in bilateral common femoral, superficial femoral, popliteal, and posterior tibial and peroneal veins at the time of examination. Disclaimer: DVT could be missed early in the disease when clot burden is minimal. For patients with moderate and high pretest probability of DVT and negative ultrasound, the [employer] clinical guidelines recommend testing with a D-dimer assay or repeat ultrasound in 5-7 days. If symptoms worsen, the Society of radiologists in ultrasound recommends repeating ultrasound even earlier. Electronically signed by Wally Duran 10-02-2024 10:01 AM
--- NOTE | 2024-10-02 10:23 | Discharge Summary ---
Date of Service October 02, 2024 Admission HPI Per Admitting Provider 34-year-old female PMHx C. difficile diarrhea and anemia presenting for abdominal pain with associated vomiting and diarrhea x 1 day. Patient states that she awoke around 0200 with onset of lower abdominal pain that was sharp and aching in nature, then had multiple episodes of emesis. 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 No recent ABX use. Patient denies sick contacts, does not believe that she ate anything recently that would have caused the symptoms. 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 States that when she lays back down this resolves some. Denies illicit drug use. Denying chest pain, palpitations, LUTS, numbness/tingling, syncope, headache, or fever/chills. ED evaluation reveals no leukocytosis, stable H&H, CO2 19, BUN/creatinine ratio 27.4, protein 8.5; UA elevated SG, presence of WBC many epithelial cells and plus bacteria, was provided with Rocephin x 1 in ED; BioFire negative; CTAP hiatal hernia, possible colonic ileus. Provided with 2L NSS, ondansetron, morphine, lorazepam, diphenhydramine, Rocephin, prochlorperazine. Please see Dr. Palacios's attestation for adjustments/additions to treatment plan. Admission Exam Per Admitting Provider General: No acute distress Skin: Warm and dry Head: Normocephalic, atraumatic Eyes: PERRL, conjunctivae clear, sclera non-icteric ENT: External ear and ear canal without swelling; nose atraumatic; No teeth present, tongue normal appearance, pharynx normal Neck: Supple, no LAD Cardio: Tachycardic 110s-120s, regular rhythm, no M/G/R, S1 and S2 normal Resp: No respiratory distress, Lungs CTA in all lobes bilaterally, no wheezes, rales, or rhonchi Abdomen: Soft, symmetric, nontender; no distention; No masses or hepatosplenomegaly; Bowel sounds normoactive MSK: No deformities; pulses palpable and equal; no edema; No calf tenderness bilaterally. Neuro: Awake, alert; CN grossly intact Psych: Good judgement and insight. Principal Diagnosis - Viral gastroenteritis - Sinus tachycardia:stress-induced. Resolved Discharge Exam General: Awake, conversant Heart: S1, S2/regular rate and rhythm, no murmur rubs or gallops Lungs: Clear to auscultation bilaterally. Normal effort Abdomen: Soft/nontender/nondistended. No hepatosplenomegaly Extremities: No clubbing/cyanosis. No edema Behavior: Appropriate, cooperative Discharge Data Allergies Allergy/AdvReac Type Severity Reaction Status Date / Time erythromycin base AdvReac Verified 09/23/23 11:58 morphine AdvReac Verified 09/23/23 11:58 Sulfa (Sulfonamide AdvReac Verified 09/23/23 11:58 Antibiotics) Consultations 10/01/24 23:04 ED Decision to Admit Stat Ordered Studies 10/01/24 17:52 CT Abd and Pelvis [CT abd pelvis IV con only] Stat Abdomen/Pelvis CT 10/01/24 17:52 Clinical History: Abdominal pain Technique: Axial computed tomography images were obtained of the abdomen and pelvis after the administration of intravenous contrast. No prior CT is available for comparison. Findings: The liver is overall of normal size, attenuation, and contour with no sign of cirrhosis or significant fatty infiltration. No liver mass lesion is seen. The portal vein is patent. The gallbladder appears unremarkable. No bile duct dilatation is noted. The spleen is of normal size. No focal splenic lesion is evident. The pancreas appears normal with no sign of acute or chronic pancreatitis and no mass lesion noted. The pancreatic duct is of normal caliber. The adrenal glands appear unremarkable. No definite renal or proximal ureteral calculi are seen on this contrast-enhanced study. There is no hydronephrosis or perinephric stranding. No renal mass lesion is identified. The aorta is of normal caliber. No abdominal adenopathy is seen. There is a moderate sized hiatal hernia. Postsurgical changes are seen involving the stomach. There is no sign of small bowel obstruction. There is mild colonic dilatation that could be due to ileus. The appendix appears to have been removed. No free intraperitoneal fluid or air is identified. No distal ureteral or bladder calculi are seen. No bladder mass lesion is evident. The iliac arteries are of normal caliber. No pelvic adenopathy is noted. The lungs bases appear clear. There is pectus excavatum deformity of the anterior chest wall. There are bilateral breast implants. No fracture is identified. No focal osseous lesion is seen Impression: 1. Hiatal hernia 2. Possible colonic ileus Electronically signed by Andrei Aguirre 10-01-2024 6:45 PM Chest CTA 10/02/24 00:41 EXAM: CT angio chest PE protocol CLINICAL HISTORY: PE TECHNIQUE: Contiguous axial images were obtained from the neck base through the upper abdomen following intravenous administration of iodinated contrast material. Angiographic images were processed, 3D MIP images were acquired for interpretation. If IV contrast material had not been administered, the likelihood of detecting abnormalities relevant to the patient's condition would have been substantially decreased. Coronal and sagittal 3-D MIPs were likewise performed and indicated to increase the sensitivity of detectin diffuse clinically relevant pathology. CT scan was performed according to ALARA (as low as reasonably achievable). COMPARISON: none FINDINGS: Adequate contrast bolus without evidence of pulmonary embolism. The central airways are patent. The lungs are clear. No pleural effusion. The heart, aorta, and pulmonary arteries are of normal size and configuration. There are no appreciable coronary artery and aortic atherosclerotic calcifications. No pericardial effusion is identified. The thyroid is unremarkable. No mediastinal, hilar, or axillary lymphadenopathy is noted. No suspicious lytic or sclerotic osseous lesions are identified. Pectus excavatum noted. Bilateral breast implants seen. Moderate sized hiatus hernia. IMPRESSION: 1. No evidence of pulmonary embolism or pulmonary disease. 2. Pectus excavatum noted. Electronically signed by Donovan Calvert 10-02-2024 02:00 AM Venous Doppler Study 10/02/24 00:41 EXAM: US venous doppler LE BI CLINICAL HISTORY: Elevated ddimer, SOB, ST TECHNIQUE: Ultrasound examination of bilateral lower extremity veins was performed in real time and duplex. One or more of the following were performed- spectral analysis, resistive index, waveform analysis, and pulsed Doppler. COMPARISON: None. FINDINGS: Normal phasic, non-pulsatile, and spontaneous flow is noted in bilateral common femoral, superficial femoral, popliteal, and posterior tibial and peroneal veins. Visualized veins of both lower extremities demonstrate normal compressibility. No sonographic evidence of acute deep vein thrombosis (DVT) is detected in the visualized veins of both lower extremities. Compression and Augmentation: All evaluated veins compress fully with applied transducer pressure. Augmentation of venous flow is noted with distal compression. Additional Findings: No evidence of intraluminal thrombus. IMPRESSION: No sonographic evidence of acute DVT was detected in bilateral common femoral, superficial femoral, popliteal, and posterior tibial and peroneal veins at the time of examination. Disclaimer: DVT could be missed early in the disease when clot burden is minimal. For patients with moderate and high pretest probability of DVT and negative ultrasound, the [employer] clinical guidelines recommend testing with a D-dimer assay or repeat ultrasound in 5-7 days. If symptoms worsen, the Society of radiologists in ultrasound recommends repeating ultrasound even earlier. Electronically signed by Wally Duran 10-02-2024 10:01 AM 10/02/24 00:41 CT angio chest PE protocol Stat US venous doppler LE BI Stat Hospital Course (1) Sinus tachycardia: (2) Nausea, vomiting, and diarrhea: Plan 34-year-old female PMHx C. difficile diarrhea and anemia presenting for abdominal pain with associated vomiting and diarrhea x 1 day. ED evaluation reveals no leukocytosis, stable H&H, CO2 19, BUN/creatinine ratio 27.4, protein 8.5; UA elevated SG, presence of WBC many epithelial cells and plus bacteria, was provided with Rocephin x 1 in ED; BioFire negative; CTAP hiatal hernia, possible colonic ileus. Provided with 2L NSS, ondansetron, morphine, lorazepam, diphenhydramine, Rocephin, prochlorperazine. #Sinus tachycardia Pt presents for GI complaints but remained tachycardic throughout exam, w/o chest pain, palpitations, or additional symptoms. Hypovolemic on exam, did have some SOB reported with dizziness. No prolonged duration of sitting or other clear risk factors for VTE, no calf tenderness bilaterally. Suspect that elevated heart rate secondary to dehydration versus PE versus illicit drug versus normal variant for patient. Does have history of sinus tachycardia and medical chart, but patient and family member state that this is abnormal for her. - CBC without leukocytosis and stable H&H; TSH 1.379; D-dimer elevated at 1360- BLE duplex US negative for DVT - Chest CTA negative PE- does reveal pectus excavatum - UDS positive for opioids (patient denied illicit drug use, sample collected following administration of morphine in ED); Marijuana negative - EKG AJR @ 123 bpm; continue to monitor on tele Resolved today.. Was most likely related to dehydration and stress #GI symptoms Most likely related to viral gastroenteritis Abdominal pain, vomiting, and diarrhea starting at 0200 the day of arrival and ongoing throughout the day. No sick contacts; resp BioFire negative. H/o Cdiff. - CMP: BUN/creatinine ratio 27.4, and CO2 19 otherwise no gross electrode abnormalities - UDS (+) opiates however UDS collected after patient received dose of morphine in ED- pending further studies - CTAP hiatal hernia, ? colonic ileus - Stool studies pending + cdiff pending. Patient has not had any vomiting or diarrhea episodes overnight. - Received 2L IVF - Zofran prn -Now tolerating a solid diet Dispo: Discharge to home. Patient wishes to go home. This document was dictated utilizing [employer]. Please excuse any grammatical errors that may be secondary to use of this software. Total Time Total Time Spent Total Time Spent (In Minutes): 35 Discharge Plan Discharge Items Patient Disposition: Home - Self-Care Reason For Visit: TACHYCARDIA Discharge Diagnosis: - Viral gastroenteritis - Sinus tachycardia:stress-induced. Resolved Activity: Resume your previous activity Non-emergency contact: Primary Care Provider Call non-emergency contact if: you have any medication questions and your symptoms worsen Follow-up/Referrals: Eloy Hubbard DO [Primary Care Provider] - Diet: Regular Addtl Attending Provider Instructions: - Advised to follow-up with PCP in 1 week Pending Studies at Discharge: No Stand-Alone Forms: My [facility] Medications and DC Order Prescriptions: Continued albuterol sulfate [ProAir HFA] 90 mcg/actuation HFA aerosol inhaler 2 puff INH QID Qty: 8 2RF ondansetron HCl 4 mg tablet 4 mg PO Q6H PRN (Reason: nausea and vomiting) Qty: 14 0RF Discharge Orders: Discharge Order (Routine); Ordered 10/02/24 Ordered By: Cristhian Kirby Admission Data Admit Date/Time: 10/01/24 23:23 Attending Provider: Cristhian Kirby Admit Provider: Rodrigo Palacios Primary Care Provider: Eloy Hubbard Other Providers: Rodrigo Palacios
[2024-10-02 10:54] VITALS: O2SAT 98
[2024-10-02 11:40] VITALS: PULSE 103; RESP 17; TEMP 98.2
[2024-10-02 13:28] VITALS: BP 120/84
--- NOTE | 2024-10-04 23:15 | Electrocardiogram Report ---
Test Reason : Blood Pressure : */* mmHG Vent. Rate : 123 BPM Atrial Rate : * BPM P-R Int : * ms QRS Dur : 84 ms QT Int : 292 ms P-R-T Axes : * -22 47 degrees QTcB Int : 418 ms Sinus tachycardia Minimal voltage criteria for LVH, may be normal variant ( R in aVL ) Poor R wave progression, consider anterior SD vs. lead placement vs. LVH Nonspecific T wave abnormality Abnormal ECG No previous ECGs available Confirmed by Yoel Omer ([id number]) on 10/04/2024 11:15:17 PM Referred By: REFERRED SELF Confirmed By: Yoel Omer
[2024-10-05 11:38] LABS: Codeine Urine NEGATIVE ng/mL (<50); Hydrocodone Urine NEGATIVE ng/mL (<50); Hydromor Urine NEGATIVE ng/mL (<50); Morphine Urine 1920 ng/mL (<50); Norhydrocodone Conf Ur NEGATIVE ng/mL (<50); Noroxycodone Urine NEGATIVE ng/mL (<50); Oxycodone Urine NEGATIVE ng/mL (<50); Oxymorph Urine NEGATIVE ng/mL (<50)
== END 2024-10-02 14:08 | disposition home or self-care (01) ==
LOC: ED 16:25 → EDINP 16:25 → SUATTDRO 23:23 → 2N 10-02 00:16